=== PATIENT | female | born 1955 | race Caucasian/White ===

== ENCOUNTER 2024-08-18 15:05 | Inpatient (IN) | payer MEDICARE, OTHER ==
[~2024-08-18] VITALS: Ht 170.2 cm; Wt 49.6 kg
--- NOTE | 2024-08-18 16:16 | ED.PDOC ---
History of Present Illness HPI Comments This patient is a pleasant 69-year-old female who arrives to the ED today with her due to complaints of right hip and leg pain concerns status post ground level fall yesterday. Patient states she had a mechanical trip and fall yesterday and landed on her right hip. Patient states it subsequent to the event, she has been unable to bear weight. Patient arrives with a slight inward rotation of the foot and elevation of the right hip region. Patient denies any head trauma or LOC. 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 Family History Family History: Reviewed,noncontributory to illness, Unknown Social History Smoker: Non-Smoker Alcohol: Denies ETOH Use Drugs: Denies Drug Use Lives In: Home Constitutional: denies: chills, diaphoresis, fatigue, fever, malaise, sweats, weakness, others EENTM: denies: blurred vision, double vision, ear bleeding, ear discharge, ear drainage, ear pain, ear ringing, eye pain, eye redness, hearing loss, mouth pain, mouth swelling, nasal discharge, nose bleeding, nose congestion, nose pain, photophobia, tearing, throat pain, throat swelling, voice changes, others Respiratory: denies: cough, hemoptysis, orthopnea, SOB at rest, shortness of breath, SOB with excertion, stridor, wheezing, others Cardiovascular: denies: chest pain, dizzy spells, diaphoresis, Dyspnea on exertion, edema, irregular heart beat, left arm pain, lightheadedness, palpitations, PND, syncope, others Gastrointestinal: denies: abdomen distended, abdominal pain, blood streaked bowels, constipated, diarrhea, dysphagia, difficulty swallowing, hematemesis, melena, nausea, poor appetite, poor fluid intake, rectal bleeding, rectal pain, vomiting, others Genitourinary: denies: abnormal vagina bleeding, burning, dyspareunia, dysuria, flank pain, frequency, hematuria, incontinence, pain, , vagina discharge, urgency, others Neurological: denies: dizziness, fainting, headache, left sided numbness, left sided weakness, numbness, paresthesia, pre-existing deficit, right sided numbness, right sided weakness, seizure, speech problems, tingling, tremors, weakness, others Musculoskeletal: reports: others (Right hip and thigh pain); denies: back pain, gout, joint pain, joint swelling, muscle pain, muscle stiffness, neck pain Integumetry: denies: bruises, change in color, change in hair/nails, dryness, laceration, lesions, lumps, rash, wounds, others Allergic/Immunocompromised: denies: Difficulty Healing, Frequent Infections, Hives, Itching, others Hematologic/Lymphatic: denies: anemia, blood clots, easy bleeding, easy bruising, swollen glands, others Endocrine: denies: excessive hunger, excessive sweating, excessive thirst, excessive urination, flushing, intolerance to cold, intolerance to heat, unexplained weight gain, unexplained weight loss, others Psychiatric: denies: anxiety, bipolar disorder, depression, hopeless, panic disorder, schizophrenia, sleepless, suicidal, others All Other Systems: Reviewed and Negative Physical Exam General Appearance: Mild Distress ( patient only had mild distress at time of evaluation. Patient states the pain is manageable as long as she does not m ove.), Normal HEENT: Normal ENT Inspection, Pharynx Normal, TMs Normal Neck: Full Range of Motion, Non-Tender, Normal, Normal Inspection Respiratory: Chest Non-Tender, Lungs Clear, No Accessory Muscle Use, No Respiratory Distress, Normal Breath Sounds Cardiovascular: No Edema, No JVD, No Murmur, No Gallop, Normal Peripheral Pulses, Regular Rate/Rhythm Breast Exam: Deferred Gastrointestinal: No Organomegaly, Non Tender, No Pulsatile Mass, Normal Bowel Sounds, Soft Genitalia: Deferred Pelvic: Deferred Rectal: Deferred Extremities: Other ( Lateral aspect of the right hip is diffusely tender to palpation with some hip elevation noted. Patient is unable to stand or bear weight. Distal neurovascularly intact.) Musculoskeletal : Apperance: Normal Neurologic: Alert, Normal Affect, Normal Mood, No Sensory Deficits Cerebellar Function: NOT DONE Reflexes: NOT DONE Skin: Dry, Normal Color, Warm Lymphatic: No Adenopathy Was a procedure done? Was a procedure done?: No Differential Dx Considerations may include: Hip contusion, hip fracture, femoral fracture X-Ray, Labs, Meds, VS Vital Signs Date Time Temp Pulse Resp B/P (MAP) Pulse Ox O2 Delivery O2 Flow Rate FiO2 08/18/24 17:08 98.6 95 20 163/97 (119) 96 98.6 08/18/24 15:15 98.4 95 18 161/98 (119) 98 98.4 X-Ray, Labs, Meds, VS Comment All studies performed the ED were evaluated by me personally. Imaging studies confirmed a displaced subcapital fracture of the proximal right femur. Additional findings were notable for a 18-19 mm lytic process in the femoral n jessie raising the possibility of a pathologic fracture. Orthopedics is pending returned call this point in time. Patient will be admitted or transferred to a higher level of care. Time of 1ST Reevaluation: 18:11 Reevaluation 1ST: Unchanged Consultation: PCP, Surgery Patient Education/Counseling: Diagnosis, Treatment, Prognosis Family Education/Counseling: Diagnosis, Treatment, No Family Present Departure 1 Departure Time of Disposition: 18:11 Impression: Primary Impression: Subcapital fracture of right femur Disposition: ADMITTED INPATIENT Condition: Stable Discharged With: Self Critical Care Note Critical Care Time?: No Stability Stability form required: No Heart Score Heart Score: Heart Score Response (Comments) Value History N/A 0 EKG N/A 0 Age N/A 0 Risk Factors N/A 0 Troponin N/A 0 Total 0 I personally scribed for CELIA CLEMENTS PAC ([email or web address]) on 08/18/24 at 16:16. Electronically submitted by Enoc Tinsley ([email or web address]). CELIA CLEMENTS PAC August 18, 2024 16:16
--- NOTE | 2024-08-18 17:42 | DVH ---
INDICATION: Fall/trauma COMPARISON: None TECHNIQUE: CT of the right was performed without contrast. Volume transverse images were obtained and reconstructed in multiple planes using bone and soft tissue algorithms. CONTRAST: None Radiation Dose Information: CT Dose: CTDI volume is 25.19 mGy. Dose-length product is 1424.14 mGy*cm FINDINGS: The alignment is normal. The joint spaces are normal. Displaced subcapital fracture proximal right femur. There appears to be a 18- 19 mm lytic process in the femoral neck this may represent a pathologic fracture. The soft tissues are normal. IMPRESSION: 1. Displaced subcapital fracture proximal right femur. 2. There is an 18- 19 mm lytic process in the femoral neck raising the possibility of a pathologic fr acture. 3. All CT scans at this medical facility are performed using dose modulation techniques as appropriat e to a performed exam including the following: Automated exposure control was utilized; adjustment of the MA and/or KV according to patient size; and use of iterative reconstruction technique.
[2024-08-18] MEDS: HYDROcodone-ACET 10/325MG TAB PO ONE (21:31)
[2024-08-18] MEDS ORDERED: NITROGLYCERIN 0.4 MG SL TAB SL PRN (22:30)
--- NOTE | 2024-08-18 22:34 | DVHHP2 ---
History of Present Illness History of Present Illness Patient is 69 years old female with a past medical history of hypertension brought to the hospital due to fall and right leg pain. As per patient and her patient had a fall last night on the right side of her body, not hitting head. Following that he she has been having severe pain in the right side 01/13 at some point. Patient denied any chest pain or shortness of breath dizziness or vertigo or palpitation area or change in vision. Initial lab Workup revealed hyponatremia with sodium 125, hypokalemia with a potassium 3.4, HGB A1c 5.1, serum bilirubin 1.5. CT scan of the right lower extremity revealed- Displaced subcapital fracture proximal right femur. There is an 18- 19 mm lytic process in the femoral neck raising the possibility of a pathologic fracture. Past Medical History Hypertension Past Surgical History History of left hip surgery Past Social History Patient lives with the , denies smoking/alcoholism/drug abuse Home medication- amlodipine 2.5 mg p.o. daily, losartan 100 mg p.o. daily Review of Systems Review of Systems Allergy- NKDA Patient was seen today at the bedside. Cardiovascular- deny acute chest pain or shortness of breath or cough or palpitation Respiratory denies cough or short of breath or wheezing Gastrointestinal- denies any rectal bleeding, nausea or vomiting Neurological- denies acute dysarthria, dysphagia, change in vision Psychiatry- denies depression or SI or HI Skin- denies acute rash or purpura Allergies: Coded Allergies: NO KNOWN ALLERGIES (Unverified , 08/18/24) Medications Current Medications Medications Dose Ordered Sig/Deann Route Start Time Stop Time Status Last Admin Dose Admin Nitroglycerin 0.4 mg Q5MINP PRN SL 08/18/24 22:30 Morphine Sulfate 1 mg Q6HP PRN IV 08/18/24 22:30 Pantoprazole Sodium 40 mg DAILY IV 08/19/24 10:00 Heparin Sodium (Porcine) 5,000 units Q12HR SC 08/19/24 10:00 UNV Losartan Potassium 100 mg DAILY PO 08/19/24 10:00 Amlodipine Besylate 2.5 mg DAILY PO 08/19/24 10:00 Exam Vital Signs Vital Signs Date Time Temp Pulse Resp B/P (MAP) Pulse Ox O2 Delivery O2 Flow Rate FiO2 08/18/24 20:00 100.2 92 20 167/97 (120) 95 100.2 Exam General examination- , alert, oriented, conversant HEENT- PEERLA, no acute nasal discharge Cardiovascular- S1-S2 audible, rate and rhythm regular, no murmur Respiratory- CTAB, no wheeze or rhonchi Gastrointestinal-nontender, bowel sound+. Nondistended Musculoskeletal-no acute joint swelling or tenderness or redness Lower extremity- right lower extremity short and everted Neurological- cranial nerves intact, no acute dysarthria or dysphagia Psychiatry- denies depression or SI or HI Skin- no acute rash or purpura Assessment/Plan Assessment/Plan Assessment and plan Fall Right femur fracture Right lower extremity shortened and everted Moderate hyponatremia Mild hypokalemia Elevated bilirubin Hypertension hyponatremia with sodium 125, hypokalemia with a potassium 3.4, HGB A1c 5.1, serum bilirubin 1.5. CT scan of the right lower extremity revealed- Displaced subcapital fracture proximal right femur. There is an 18- 19 mm lytic process in the femoral neck raising the possibility of a pathologic fracture. Plan Ordered orthopedic consult for further evaluation And care Continue pain medication as prescribed Resume amlodipine and losartan for hypertension Ordered IV normal saline Potassium supplemented Goals of care, Code status ; discussed with >15 minutes PUD prophylaxis: Pantoprazole DVT prophylaxis: Heparin Plan discussed with Dr. Galeas , nursing staff, Total time spent on patient evaluation, chart review, assessment and plan, discussion discussion >35 minutes Plan discussed with: Patient, Spouse, Other (N) My Orders Orders - YI JIMÉNEZ RESIDENT Procedure Category Date Status Time Admit ADMIT 08/18/24 Transmitted 22:21 Nitroglycerin PHA 08/18/24 In Process Sublingual (Ntrostat 22:30 Notify Of Changes RIGO 08/18/24 In Process From Base 22:21 Countersinker Balance Screw Hole For RIGO 08/18/24 In Process 24 Hours 22:21 Morphine Sulfate PHA 08/18/24 In Process Injection 22:30 Pantoprazole PHA 08/19/24 In Process (Protonix) 10:00 Heparin Sodium PHA 08/19/24 Pending (Porcine) 10:00 Losartan Tablet PHA 08/19/24 In Process (Cozaar Tablet) 10:00 Amlodipine Tablet PHA 08/19/24 In Process (Norvasc Tablet) 10:00 *Cons[address] Humphries CONS 08/18/24 Transmitted Ibrahima 22:25 Date of Service: August 18, 2024 Billing Provider: NORMA GALEAS MD Common Visit Codes: [id number] INP/OBS CARE (HIGH) Secondary Visit Codes: [id number] CARE PLAN 30 MINUTES YI JIMÉNEZ RESIDENT August 18, 2024 22:34
[2024-08-18] MEDS: LOSARTAN POTASSIUM 50 MG TAB PO ONE (22:47)
[2024-08-18] MEDS: amLODIPine BESYLATE 5 MG TAB PO ONE (22:47)
[2024-08-18] MEDS: PANTOPRAZOLE 40 MG/10 ML VIAL INJ IV ONE (22:48)
[2024-08-18 23:49] LABS: Basophils # (auto) 0 10 ^3/uL (0-0.2); Basophils % (auto) 0.1 % (0.0-2.0); Eosinophils # (auto) 0 10 ^3/uL (0-0.8); Eosinophils % (auto) 0.1 % (0.0-7.0); Hematocrit 38.2 % (36.0-46.0); Hemoglobin 13.5 g/dL (12.2-16.2); Lymphocytes # (auto) 1.1 10 ^3/uL (0.4-5.4); Lymphocytes % (auto) 11.7 % (10.0-50.0); Mean Corpuscular Hemoglobin 31.4 pg (28.0-32.0); Mean Corpuscular Hgb Conc. 35.4 g/dL (32.0-36.0); Mean Corpuscular Volume 88.9 fL (80.0-100.0); Monocytes # (auto) 0.7 10 ^3/uL (0-1.3); Monocytes % (auto) 7.6 % (0.0-12.0); Neutrophils # (auto) 7.6 10 ^3/uL (1.6-8.6); Neutrophils % (auto) 80.5 % (37.0-80.0); Platelet Count (auto) 203 10^3/uL (140-450); Red Cell Distribution Width 12.6 % (11.8-14.3); White Blood Cell 9.4 10^3/uL (4.4-10.8)
[2024-08-19] VITALS (8 sets, daily range): BP systolic 90–144; BP diastolic 58–80; PULSE 66–90; RESP 16–19; TEMP 97.8–98.7; O2SAT 93–95
[2024-08-19 00:03] LABS: INR 1.09 (0.9-1.15); Prothrombin Time 11.5 sec (9.3-11.8)
[2024-08-19 00:04] LABS: Alanine Aminotransferase 12 U/L (7-40); Albumin 4.5 g/dL (3.2-4.8); Alkaline Phosphatase 83 U/L (46-116); Anion Gap 9 (5-15); Aspartate Aminotransferase 19 U/L (13-40); BUN/Creatinine Ratio 14.1 (10.0-20.0); Blood Urea Nitrogen 10 mg/dL (9-23); Calcium 9.2 mg/dL (8.7-10.4); Carbon Dioxide 23 mmol/L (20-31); Chloride 93 mmol/L (98-107); Glucose 131 mg/dL (74-106); Potassium 3.4 mmol/L (3.5-5.1); Sodium 125 mmol/L (136-145); Total Protein 7.4 g/dL (5.7-8.2)
--- NOTE | 2024-08-19 00:15 | DVH ---
CHEST RADIOGRAPH Indication: PNA Technique: Single frontal view of the chest was obtained COMPARISON: None FINDINGS: Lines and Tubes: None Lungs: Mild diffuse increased prominence of the pulmonary vasculature and interstitium. No evidence o f focal consolidation. Pleura: No effusion. No pneumothorax. Cardiomediastinal contours: Unremarkable Bones: Unremarkable IMPRESSION: 1. No acute disease. Mild diffuse increased prominence of the pulmonary vasculature and interstitium.
[2024-08-19 00:17] LABS: Bilirubin, Total 1.5 mg/dL (0.2-1.0)
[2024-08-19] MEDS: MORPHINE SULFATE INJ 2 MG/ml SYRG IV PRN (00:53)
[2024-08-19 01:10] LABS: Urine Bacteria None Seen /hpf (None Seen)
[2024-08-19] MEDS ORDERED: ACETAMINOPHEN 325 MG TAB PO PRN (01:15)
[2024-08-19] MEDS: POTASSIUM CHL 20 Meq TABLET PO ONE (01:26)
[2024-08-19] MEDS: SODIUM CHLORIDE 0.9% 1,000 ML IV SCH (01:26)
[2024-08-19 01:34] LABS: Urine Blood 2+ /uL (Negative); Urine Clarity Clear (Clear); Urine Color Light-Yellow (Yellow); Urine Mucus FEW (None Seen); Urine Protein, UAD Negative (Negative); Urine Specific Gravity 1.015 (1.001-1.035); Urine Squamous Epithelial Cell FEW /hpf (<5); Urine Urobilinogen Normal (Negative); Urine WBC 2 /HPF (0-5); Urine pH 6.5 (5.0-9.0)
[2024-08-19 01:37] LABS: Barbiturate Scree,Urine Neg (NEGATIVE); Opiate Scree,Urine Neg (NEGATIVE)
[2024-08-19 01:38] LABS: Amphetamine Screen, Urine Neg (NEGATIVE); Benzodiazephine Screen, Urine Neg (NEGATIVE); Cannabinoid Screen, Urine Neg (NEGATIVE); Cocaine Screen, Urine Neg (NEGATIVE); Phencyclidine Screen, Urine Neg (NEGATIVE)
[2024-08-19] MEDS ORDERED: ACET-1341 OR (04:46)
[2024-08-19] MEDS ORDERED: CHOL20007 PO (04:46)
[2024-08-19] MEDS ORDERED: LOSA-535 PO (04:46)
[2024-08-19] MEDS ORDERED: AML5T PO (04:48)
[2024-08-19 06:38] LABS: Alanine Aminotransferase 10 U/L (7-40); Alkaline Phosphatase 70 U/L (46-116); Anion Gap 10 (5-15); Aspartate Aminotransferase 17 U/L (13-40); BUN/Creatinine Ratio 14.7 (10.0-20.0); Blood Urea Nitrogen 11 mg/dL (9-23); Calcium 8.8 mg/dL (8.7-10.4); Carbon Dioxide 23 mmol/L (20-31); Magnesium 1.8 mg/dL (1.6-2.6); Potassium 3.7 mmol/L (3.5-5.1); Total Protein 6.6 g/dL (5.7-8.2)
[2024-08-19 06:50] LABS: Bilirubin, Total 1.3 mg/dL (0.2-1.0); Chloride 93 mmol/L (98-107); Glucose 112 mg/dL (74-106); Sodium 126 mmol/L (136-145)
--- NOTE | 2024-08-19 07:35 | DVHINCON2 ---
Date of service: August 19, 2024 Reason for Consultation Right hip pain History of Present Illness Mrs. Diane is a 69-year-old female who was brought to the hospital due to a mechanical fall approximately two days ago. Patient has slipped and fell onto her right side of her body and has been experiencing pain in the inability to bear weight on her right hip since the fall. She denied any head trauma, loss of consciousness, chest pain, shortness of breath, nausea, vomiting, fever, or chills. Past Medical History Hypertension Past Surgical History Left hip surgery Family History: Patient reports no known family medical history. Family History Noncontributory Social History Patient denies smoking, EtOH, or illicit substance use Allergies: Coded Allergies: NO KNOWN ALLERGIES (Unverified , 08/18/24) Home Meds Reported Medications Amlodipine Besylate (NORVASC TABLET) 5 Mg Tb, 1 TAB PO DAILY, #30 TAB 5 Refills 08/19/24 Acetaminophen (EQ ACETAMINOPHEN EXTRA ST) 500 Mg Tab, 500 MG OR, TAB 08/19/24 Cholecalciferol (VITAMIN D3) 2,000 Unit Tab, 1 TAB PO DAILY, #30 TAB 5 Refills 08/19/24 Losartan Potassium (Losartan Potassium) 100 Mg Tab, 1 TAB PO DAILY, #30 TAB 5 Refills 08/19/24 Current Medications Current Medications Medications (Trade) Dose Ordered Sig/Deann Route PRN Reason Start Time Stop Time Status Last Admin Nitroglycerin (Ntrostat Sublingual) 0.4 mg Q5MINP PRN SL FOR CHEST PAIN 08/18/24 22:30 08/19/24 01:08 DC Morphine Sulfate 1 mg Q6HP PRN IV SEVERE PAIN (7-10 PAIN SCALE) 08/18/24 22:30 08/19/24 00:53 Pantoprazole Sodium (Protonix) 40 mg DAILY IV 08/19/24 10:00 Heparin Sodium (Porcine) 5,000 units Q12HR SC 08/19/24 10:00 Losartan Potassium (Cozaar Tablet) 100 mg DAILY PO 08/19/24 10:00 Amlodipine Besylate (Norvasc Tablet) 2.5 mg DAILY PO 08/19/24 10:00 Sodium Chloride 1,000 ml @ 125 mls/hr Q8H IV 08/19/24 01:15 08/19/24 01:26 Acetaminophen (Tylenol Tablet) 650 mg Q6HP PRN PO MODERATE PAIN (4-6 PAIN SCALE) 08/19/24 01:15 Review of Systems 10 point review of systems negative except as per HPI Vital Signs Vital Signs Date Time Temp Pulse Resp B/P (MAP) Pulse Ox O2 Delivery O2 Flow Rate FiO2 08/19/24 04:58 98.0 66 16 105/63 (77) 93 98.0 08/19/24 03:59 Room Air* 0 21 Physical Exam General appearance: A&O x4 in no acute distress HEENT: Normal ENT inspection, pharynx normal, TMs normal Neck: Full range of motion, nontender, normal inspection Respiratory: Chest nontender, without accessory muscle use, no respiratory distress Cardiovascular: No edema, no JVD, normal peripheral pulses Gastrointestinal: Soft, nontender, no organomegaly. Musculoskeletal: Right hip range of motion grossly limited with pain on slight movement, no calf tenderness, normal capillary refill, no pedal edema, ne urovascularly intact. Skin: Dry, normal color, warm Lymphatic: No adenopathy Labs/Diagnostic Data Labs Test 08/19/24 05:25 08/19/24 01:05 08/18/24 23:20 Range/Units Sodium Level 126 L 136-145 mmol/L Potassium Level 3.7 3.5-5.1 mmol/L Chloride Level 93 L 98-107 mmol/L Carbon Dioxide Level 23 20-31 mmol/L Anion Gap 10 5-15 Blood Urea Nitrogen 11 9-23 mg/dL Creatinine 0.75 0.550-1.02 mg/dL Glomerular Filtration Rate Calc 87 >90 mL/min BUN/Creatinine Ratio 14.7 10.0-20.0 Serum Glucose 112 H 74-106 mg/dL Calcium Level 8.8 8.7-10.4 mg/dL Magnesium Level 1.8 1.6-2.6 mg/dL Total Bilirubin 1.3 H 0.2-1.0 mg/dL Aspartate Amino Transferase (AST) 17 13-40 U/L Alanine Aminotransferase (ALT) 10 7-40 U/L Alkaline Phosphatase 70 46-116 U/L Total Protein 6.6 5.7-8.2 g/dL Albumin 4.0 3.2-4.8 g/dL Urine Color Light-yellow Yellow Urine Clarity Clear Clear Urine pH 6.5 5.0-9.0 Urine Specific [place] 1.015 1.001-1.035 Urine Protein Negative Negative Urine Ketones 1+ H Negative Urine Blood 2+ H Negative /uL Urine Nitrite Negative Negative Urine Bilirubin Negative Negative Urine Urobilinogen Normal Negative mg/dL Urine Leukocyte Esterase Negative Negative /uL Urine RBC 11 0 - 4 /hpf Urine Microscopic WBC 2 0-5 /HPF Urine Squamous Epithelial Cells Few <5 /hpf Urine Bacteria None seen None Seen /hpf Urine Mucus Few None Seen Urine Glucose Normal Normal mg/dL Urine Opiates Screen Neg NEGATIVE Urine Fentanyl Screen Neg NEGATIVE Urine Barbiturates Screen Neg NEGATIVE Urine Phencyclidine Screen Neg NEGATIVE Urine Amphetamines Screen Neg NEGATIVE Urine Benzodiazepines Screen Neg NEGATIVE Urine Cocaine Screen Neg NEGATIVE Urine Cannabinoids Screen Neg NEGATIVE White Blood Count 9.4 4.4-10.8 10^3/uL Red Blood Count 4.30 4.0-5.20 10^6/uL Hemoglobin 13.5 12.2-16.2 g/dL Hematocrit 38.2 36.0-46.0 % Mean Corpuscular Volume 88.9 80.0-100.0 fL Mean Corpuscular Hemoglobin 31.4 28.0-32.0 pg Mean Corpuscular Hemoglobin Concent 35.4 32.0-36.0 g/dL Red Cell Distribution Width 12.6 11.8-14.3 % Platelet Count 203 140-450 10^3/uL Mean Platelet Volume 7.2 6.9-10.8 fL Neutrophils (%) (Auto) 80.5 H 37.0-80.0 % Lymphocytes (%) (Auto) 11.7 10.0-50.0 % Monocytes (%) (Auto) 7.6 0.0-12.0 % Eosinophils (%) (Auto) 0.1 0.0-7.0 % Basophils (%) (Auto) 0.1 0.0-2.0 % Neutrophils # (Auto) 7.6 1.6-8.6 10 ^3/uL Lymphocytes # (Auto) 1.1 0.4-5.4 10 ^3/uL Monocytes # (Auto) 0.7 0-1.3 10 ^3/uL Eosinophils # (Auto) 0 0-0.8 10 ^3/uL Basophils # (Auto) 0 0-0.2 10 ^3/uL Nucleated Red Blood Cells 0.0 % Prothrombin Time 11.5 9.3-11.8 sec Prothrombin Time INR 1.09 0.9-1.15 Hemoglobin A1c 5.1 <5.7 % A1C Thyroid Stimulating Hormone (TSH) 1.52 0.55-4.78 uIU/mL Plasma/Serum Blood Alcohol < 3.0 <10 mg/dL Right hip CT scan reviewed and demonstrated: Displaced subcapital fracture proximal right femur. There is an 18- 19 mm lytic process in the femoral neck raising the possibility of a pathologic fracture. Assessment Right hip fracture Plan/Recommendation I had a lengthy discussion with the patient and after discussing her case and re viewing her imaging studies with Dr. Alejandro we have recommended an MRI of her right hip for further evaluation given the suspicious lytic lesion seen on the CT scan. We will reconvene with the patient once the MRI has been completed to discuss results and determine the course of action. She understood and agreed. Thank you for allowing us to participate in the care of your patient. Plan discussed with: Patient MILLERREMBERTO August 19, 2024 07:35
[2024-08-19] MEDS: PANTOPRAZOLE 40 MG/10 ML VIAL INJ IV SCH (10:46)
[2024-08-19] MEDS: LOSARTAN POTASSIUM 50 MG TAB PO SCH (10:46)
[2024-08-19] MEDS: amLODIPine BESYLATE 5 MG TAB PO SCH (10:47)
[2024-08-19] MEDS: HEPARIN SODIUM (PORCINE) 5000 UNITS/ML 1ML VIAL SC SCH (11:03)
--- NOTE | 2024-08-19 13:19 | DVHPN2 ---
Reviewed: Care Plan, H&P, Labs, Medications, Previous Orders, Radiology Changes from previous H/P or p: No Changes Objective Vitals Vital Signs Date Time Temp Pulse Resp B/P (MAP) Pulse Ox O2 Delivery O2 Flow Rate FiO2 08/19/24 10:47 126/76 08/19/24 09:00 98.0 79 18 93 98.0 08/19/24 03:59 Room Air* 0 21 Intake/Output Intake and Output 08/19/24 07:00 Intake Total 100 ml Balance 100 ml Intake Oral 100 ml Medications Current Medications Medications Dose Ordered Sig/Deann Route Start Time Stop Time Status Last Admin Dose Admin Morphine Sulfate 1 mg Q6HP PRN IV 08/18/24 22:30 08/19/24 00:53 1 MG Pantoprazole Sodium 40 mg DAILY IV 08/19/24 10:00 08/19/24 10:46 40 MG Heparin Sodium (Porcine) 5,000 units Q12HR SC 08/19/24 10:00 08/19/24 11:03 5,000 UNITS Losartan Potassium 100 mg DAILY PO 08/19/24 10:00 08/19/24 10:46 100 MG Amlodipine Besylate 2.5 mg DAILY PO 08/19/24 10:00 08/19/24 10:47 2.5 MG Sodium Chloride 1,000 ml @ 125 mls/hr Q8H IV 08/19/24 01:15 08/19/24 09:15 125 MLS/HR Acetaminophen 650 mg Q6HP PRN PO 08/19/24 01:15 Laboratory Results Laboratory Tests 08/18/24 23:20 08/19/24 05:25 Chemistry Test 08/18/24 23:20 08/19/24 05:25 Albumin 4.5 g/dL (3.2-4.8) 4.0 g/dL (3.2-4.8) Calcium Level 9.2 mg/dL (8.7-10.4) 8.8 mg/dL (8.7-10.4) Total Protein 7.4 g/dL (5.7-8.2) 6.6 g/dL (5.7-8.2) Magnesium Level 1.8 mg/dL (1.6-2.6) Coagulation Test 08/18/24 23:20 Prothrombin Time 11.5 sec (9.3-11.8) Prothrombin Time INR 1.09 (0.9-1.15) LFT Test 08/18/24 23:20 08/19/24 05:25 Alanine Aminotransferase (ALT) 12 U/L (7-40) 10 U/L (7-40) Alkaline Phosphatase 83 U/L (46-116) 70 U/L (46-116) Aspartate Amino Transferase (AST) 19 U/L (13-40) 17 U/L (13-40) Total Bilirubin 1.5 mg/dL (0.2-1.0) H 1.3 mg/dL (0.2-1.0) H HgA1c, TSH Test 08/18/24 23:20 Hemoglobin A1c 5.1 % A1C (<5.7) Thyroid Stimulating Hormone (TSH) 1.52 uIU/mL (0.55-4.78) Urinalysis Test 08/19/24 01:05 Urine Color Light-yellow (Yellow) Urine Clarity Clear (Clear) Urine pH 6.5 (5.0-9.0) Urine Specific [place] 1.015 (1.001-1.035) Urine Protein Negative (Negative) Urine Ketones 1+ (Negative) H Urine Blood 2+ /uL (Negative) H Urine Nitrite Negative (Negative) Urine Bilirubin Negative (Negative) Urine Urobilinogen Normal mg/dL (Negative) Urine Leukocyte Esterase Negative /uL (Negative) Urine RBC 11 /hpf (0 - 4) Urine Microscopic WBC 2 /HPF (0-5) Urine Squamous Epithelial Cells Few /hpf (<5) Urine Bacteria None seen /hpf (None Seen) Urine Mucus Few (None Seen) Urine Glucose Normal mg/dL (Normal) Labs and/or images reviewed: Labs reviewed by me, Image(s) reviewed by me Assessment/Plan Assessment/Plan Fall Right femur fracture: Ortho consult appreciated ordered MRI Right lower extremity shortened and everted Moderate hyponatremia Mild hypokalemia Elevated bilirubin Hypertension Plan discussed with: Patient Date of Service: August 19, 2024 Billing Provider: LADONNA STEARNS MD Common Visit Codes: [id number] INP/OBS CARE(HIGH) Secondary Visit Codes: [id number] CARE PLAN 30 MINUTES LADONNA STEARNS MD August 19, 2024 13:19
--- NOTE | 2024-08-19 14:03 | DVH ---
CLINICAL INDICATION: FRACTURE COMPARISON: CT scan of the right femur performed on 08/19/2024. TECHNIQUE: Multiplanar, multi-sequence MRI of the right hip was performed without intravenous contrast. Contralateral hip is included on several of the sequences. Contrast: None INTERPRETATION: Joint space: There is right hip joint effusion, likely posttraumatic. Bones and articular cartilage: There is an acute right subcapital femoral neck fracture. Right femor al head remains aligned with the acetabulum. There is mild right hip joint space narrowing. There is a 2.9 by 2.8 cm T1 hypointense, T2 hyperintense in the anterior aspect of the basicervical region of the right femoral neck. Contralateral hip shows a left hip replacement. Tendons, muscles and bursae: There is no tendon abnormality. Mild edema in the right adductor muscle s. No muscle atrophy in the right hip. Mild fatty infiltration of the abductor muscles in the left h ip likely related to the prior hip replacement. There is no evidence of bursitis. Acetabular labrum: Degeneration of the entire glenoid labrum. Other: Lower lumbar spondylosis. IMPRESSION: 1. Acute pathologic subcapital right femoral neck fracture. 2.9 cm lesion in the proximal femur at th e site of the fracture which may represent metastatic disease, although other etiologies such as mult iple myeloma or primary malignancy are not excluded. 2. Mild edema in the right adductor muscles which may reflect strain. HS:Y
[2024-08-20] VITALS (8 sets, daily range): BP systolic 110–148; BP diastolic 70–86; PULSE 78–98; RESP 16–19; TEMP 98–98.7; O2SAT 93–98
--- NOTE | 2024-08-20 09:30 | DVHPN2 ---
Progress Note - Dictate Date Seen: August 20, 2024 Medical Necessity Reason Pt with a Central, PICC or Fol: No Subjective Patient was lying comfortably in bed during my evaluation and denied any changes since my last evaluation with her. Patient continues to experience right hip pain with movement and has been unable to bear weight on that side since her incident. Patient was otherwise feeling well denying any other complaints or concerns during my evaluation. vital signs Vital Sign Date Time Temp Pulse Resp B/P (MAP) Pulse Ox O2 Delivery O2 Flow Rate FiO2 08/20/24 09:03 127/76 08/20/24 08:51 98.4 89 19 98 98.4 08/20/24 08:00 Room Air* 0 21 Total Intake and Output 08/19/24 08/19/24 08/20/24 15:00 23:00 07:00 Intake Total 500 ml 1550 ml Output Total 520 ml Balance -20 ml 1550 ml medications Current Medications Medications Dose Ordered Sig/Deann Route Start Time Stop Time Status Last Admin Dose Admin Morphine Sulfate 1 mg Q6HP PRN IV 08/18/24 22:30 08/19/24 00:53 1 MG Pantoprazole Sodium 40 mg DAILY IV 08/19/24 10:00 08/20/24 09:01 40 MG Heparin Sodium (Porcine) 5,000 units Q12HR SC 08/19/24 10:00 08/20/24 09:17 5,000 UNITS Losartan Potassium 100 mg DAILY PO 08/19/24 10:00 08/20/24 09:03 100 MG Amlodipine Besylate 2.5 mg DAILY PO 08/19/24 10:00 08/20/24 09:02 2.5 MG Sodium Chloride 1,000 ml @ 125 mls/hr Q8H IV 08/19/24 01:15 08/20/24 09:04 125 MLS/HR Acetaminophen 650 mg Q6HP PRN PO 08/19/24 01:15 objective General appearance: A&O x4 in no acute distress HEENT: Normal ENT inspection, pharynx normal, TMs normal Neck: Full range of motion, nontender, normal inspection Respiratory: Chest nontender, without accessory muscle use, no respiratory distress Cardiovascular: No edema, no JVD, normal peripheral pulses Gastrointestinal: Soft, nontender, no organomegaly. Musculoskeletal: Right hip range of motion grossly limited with pain on slight movement, no calf tenderness, normal capillary refill, no pedal edema, neurovascularly intact. Skin: Dry, normal color, warm Lymphatic: No adenopathy Right hip MRI reviewed and demonstrated: Acute pathologic subcapital right femoral neck fracture. 2.9 cm lesion in the proximal femur at the site of the fracture which may represent metastatic disease, although other etiologies such as multiple myeloma or primary malignancy are not excluded. Mild edema in the right adductor muscles which may reflect strain. laboratory and microbiology Laboratory Tests 08/19/24 05:25 08/18/24 23:20 Test 08/19/24 05:25 Range/Units Serum Glucose 112 H 74-106 mg/dL Assessment/Plan Right hip fracture I had a lengthy discussion with the patient and her regarding nonoperative versus operative management and after discussing her case and reviewing her imaging studies with Dr. Alejandro we have recommended a katiuska hip replacement of her right subcapital femoral neck fracture given her fracture pattern and poor prognosis. I discussed all of the risks and complications involved with surgery including but not limited to bleeding, infection, nerve injury, chronic pain, nonunion, malunion, need for further surgery, blood clots, DVT, PE, cardiac and pulmonary complications, and even . They understood and agreed to proceed with the surgery. We will plan to undergo surgery Thursday morning with Dr. Alexandra if schedule allows and patient remains medically stable. Thank you for allowing us to participate in the care of your patient. Plan discussed with: Patient, Spouse REMBERTO MILLER August 20, 2024 09:30
--- NOTE | 2024-08-20 10:02 | DVHPN2 ---
Reviewed: Care Plan, H&P, Labs, Medications, Previous Orders, Radiology Changes from previous H/P or p: No Changes Objective Vitals Vital Signs Date Time Temp Pulse Resp B/P (MAP) Pulse Ox O2 Delivery O2 Flow Rate FiO2 08/20/24 09:03 127/76 08/20/24 08:51 98.4 89 19 98 98.4 08/20/24 08:00 Room Air* 0 21 Intake/Output Intake and Output 08/20/24 07:00 Intake Total 2050 ml Output Total 520 ml Balance 1530 ml Intake Oral 1150 ml IV Total 900 ml Output Urine Total 520 ml # Voids 6 Medications Current Medications Medications Dose Ordered Sig/Deann Route Start Time Stop Time Status Last Admin Dose Admin Morphine Sulfate 1 mg Q6HP PRN IV 08/18/24 22:30 08/19/24 00:53 1 MG Pantoprazole Sodium 40 mg DAILY IV 08/19/24 10:00 08/20/24 09:01 40 MG Heparin Sodium (Porcine) 5,000 units Q12HR SC 08/19/24 10:00 08/20/24 09:17 5,000 UNITS Losartan Potassium 100 mg DAILY PO 08/19/24 10:00 08/20/24 09:03 100 MG Amlodipine Besylate 2.5 mg DAILY PO 08/19/24 10:00 08/20/24 09:02 2.5 MG Sodium Chloride 1,000 ml @ 125 mls/hr Q8H IV 08/19/24 01:15 08/20/24 09:04 125 MLS/HR Acetaminophen 650 mg Q6HP PRN PO 08/19/24 01:15 Laboratory Results Laboratory Tests 08/18/24 23:20 08/19/24 05:25 Urinalysis Test 08/19/24 01:05 Urine Color Light-yellow (Yellow) Urine Clarity Clear (Clear) Urine pH 6.5 (5.0-9.0) Urine Specific [place] 1.015 (1.001-1.035) Urine Protein Negative (Negative) Urine Ketones 1+ (Negative) H Urine Blood 2+ /uL (Negative) H Urine Nitrite Negative (Negative) Urine Bilirubin Negative (Negative) Urine Urobilinogen Normal mg/dL (Negative) Urine Leukocyte Esterase Negative /uL (Negative) Urine RBC 11 /hpf (0 - 4) Urine Microscopic WBC 2 /HPF (0-5) Urine Squamous Epithelial Cells Few /hpf (<5) Urine Bacteria None seen /hpf (None Seen) Urine Mucus Few (None Seen) Urine Glucose Normal mg/dL (Normal) Labs and/or images reviewed: Labs reviewed by me, Image(s) reviewed by me Assessment/Plan Assessment/Plan Right femur fracture: Ortho consult appreciated , planning for surgery on Thursday Mechanical fall at [place] Moderate hyponatremia Mild hypokalemia Elevated bilirubin Hypertension Edward [phone] at bed side Plan discussed with: Patient My Orders Orders - LADONNA STEARNS MD Procedure Category Date Status Time Cardiac DIET 08/19/24 Transmitted Diet-2gna,Lofat,Lochol Lunch Date of Service: August 20, 2024 Billing Provider: LADONNA STEARNS MD Common Visit Codes: [id number] INP/OBS CARE(HIGH) LADONNA STEARNS MD August 20, 2024 10:02
[2024-08-20] MEDS: DOCUSATE SOD 100 MG CAP PO PRN (16:15)
--- NOTE | 2024-08-20 19:45 | DVHSR ---
APPROVED REPORT EXAM: Two-dimensional and M-mode echocardiogram with Doppler and color Doppler. Blood Pressure: 127/76 mmHg INDICATION Pre-Op RISK FACTORS Height: 5'7", Weight: 115 DIMENSIONS LVDd3.1 (3.8-5.7cm)LA (2D)3.4 (1.9-4.0cm)Aortic Root3.5 (2.0-3.7cm) LVDs2.3 (2.5-4.0cm)LA (MM) (1.9-4.0cm)Aortic Cusp Exc1.5 (1.5-2.0cm) EF (%) 60.0 (55-70%)Rt. Atrium3.7 (1.9-4.0cm)Asc. Aorta cm IVSd0.8 (0.7-1.1cm)RV (D) (1.8-2.4cm) PWd1.0 (0.7-1.1cm) Mitral Valve MitralMitral Stenosis E wave0.64m/sMV Mean GR.mmHg A wave0.62m/sMV Peak GR.mmHg E/A ratio1.02D MVAcm2 DECEL [id number] 1/2 Timems Aortic Valve Aortic ValveAortic Stenosis V11.22m/Angelica Mean GR.3mmHg V21.16m/Angelica Peak GR.5mmHg LVOT Diameter1.7 (1.8-2.4cm)Doppler AVA2.39cm2 Pulmonic Valve V20.85m/s Tricuspid Valve TR Velocity2.69m/s [id number] Other Information Technically limited study due to patient position. Conclusion Technically a good study, Sinus rhythm . Ao enlargement. Valves are normal. EF of 65% with normal RV function. Doppler is unremarkable, mild TR No masses or vegetations.
[2024-08-21] VITALS (8 sets, daily range): BP systolic 118–159; BP diastolic 80–95; PULSE 71–111; RESP 16–20; TEMP 97.9–98.6; O2SAT 95–98
[2024-08-21 06:27] LABS: Partial Thromboplastin Time 33.6 SEC (24.5-34.5); Prothrombin Time 10.6 sec (9.3-11.8)
--- NOTE | 2024-08-21 07:42 | DVHPN2 ---
Progress Note - Dictate Date Seen: August 21, 2024 Medical Necessity Reason Pt with a Central, PICC or Fol: No vital signs Vital Sign Date Time Temp Pulse Resp B/P (MAP) Pulse Ox O2 Delivery O2 Flow Rate FiO2 08/21/24 07:30 Room Air* 0 21 08/21/24 05:00 98.1 93 16 159/90 (113) 98 98.1 Total Intake and Output 08/20/24 08/20/24 08/21/24 15:00 23:00 07:00 Intake Total 100 ml 1100 ml 1050 ml Output Total 600 ml Balance 100 ml 500 ml 1050 ml medications Current Medications Medications Dose Ordered Sig/Deann Route Start Time Stop Time Status Last Admin Dose Admin Morphine Sulfate 1 mg Q6HP PRN IV 08/18/24 22:30 08/19/24 00:53 1 MG Pantoprazole Sodium 40 mg DAILY IV 08/19/24 10:00 08/20/24 09:01 40 MG Heparin Sodium (Porcine) 5,000 units Q12HR SC 08/19/24 10:00 08/20/24 21:05 5,000 UNITS Losartan Potassium 100 mg DAILY PO 08/19/24 10:00 08/20/24 09:03 100 MG Amlodipine Besylate 2.5 mg DAILY PO 08/19/24 10:00 08/20/24 09:02 2.5 MG Sodium Chloride 1,000 ml @ 125 mls/hr Q8H IV 08/19/24 01:15 08/21/24 05:00 125 MLS/HR Acetaminophen 650 mg Q6HP PRN PO 08/19/24 01:15 Docusate Sodium 100 mg BIDPRN PRN PO 08/20/24 16:00 08/20/24 16:15 100 MG objective General Appearance: alert, no distress HEENT: EOMI, PERRLA, normal external inspect of ears, no icterus, no nasal drainage Neck: no carotid bruit, no jugular venous distention (JVD), no lymphadenopathy Chest: normal thorax Respiratory: clear to auscultation, normal air movement Cardiovascular: regular rate and rhythm, no diastolic murmur, no jugular venous distention (JVD), no rub, no systolic murmur Abdominal: soft, no hepatomegaly, no mass, no splenomegaly, no tenderness Musculoskeletal: no joint tenderness, no swelling Extremities: normal pulses, no calf tenderness, no clubbing, no cyanosis, no edema Skin: no bruising, no jaundice, no rash Neurological: alert, No focal deficit laboratory and microbiology Laboratory Tests 08/19/24 05:25 08/18/24 23:20 Test 08/19/24 05:25 Range/Units Serum Glucose 112 H 74-106 mg/dL Problem List - Displaced right femur subcapital fracture Orthopedic consult, plan for ORIF on Thursday with Dr. Alexandra - Mechanical fall Monitoring -Moderate hyponatremia-improving Replace electrolytes, monitoring - Mild hypokalemia-resolved -Hyperalbuminemia Daily labs Assessment/Plan hag subjective Patient is awake and alert. Objective She states she had a fall while vacationing with her . She sustained a right hip fracture. Patient was seen by orthopedic surgeon they are planning for ORIF of her right hip in AM. I discussed plan of care with Dr. Kumar. He is planning on visiting patient in AM. Plan Orthopedic surgeon recommendations appreciated. Continue current plan. Dietary Evaluation Review Recommendations by RD: Dietary education by RD, Protein Supplementation Comments: 1) Initiate Ensure Enlive tid. Liberalize diet to 2g Na. Encourage optimal PO intake 2) Refer to outpatient RD for weight management 3) Follow-up with orthopedic surgeon and physical therapy 4) Continue to monitor I&O, labs, and skin integrity Expected Outcomes/Goals: 1) appetite and labs to improve 2) gradual wt gain 3) f/u in 3-5 days Plan discussed with: Patient, Other ELIDIALAVINIASHELDON Bell NP August 21, 2024 07:42
[2024-08-21] MEDS: SODIUM CHLORIDE 0.9% 1,000 ML IV SCH (10:17)
--- NOTE | 2024-08-21 13:37 | DVH ---
Indication: rule out tumor Technique: CT axial images of the chest, abdomen and pelvis are obtained with intravenous contrast. Coronal and sagittal reformats were obtained. Radiation Dose Information: CTDI volume is 6.17 mGy. Dose-length product is 428.73 mGy*cm Comparison: None FINDINGS: Trachea patent. No pneumothorax. No pleural effusion. Left upper lobe lingular segment, right middle lobe tree-in-bud nodularity. Right upper lobe tree-in-bud nodularity. Heart normal in size. Pretracheal lymph node measuring 10 mm. Subcarinal lymph node measuring 10 mm. No supraclavicular or axillary lymphadenopathy. Adrenal glands, spleen, pancreas unremarkable. No enhancing hepatic lesion. No CT evidence for winter lithiasis. Kidneys demonstrate no hydronephrosis. Stomach is partially distended. Small bowel loops are normal in caliber. Moderate volume stool in th e colon. Normal appendix. Abdominal aortic atherosclerotic disease bladder distended. No free pelvic fluid. No inguinal lymphad enopathy. Redemonstration of right femoral neck subcapital fracture with angulation deformity and possible unde rlying lytic lesion. Left total hip arthroplasty. Moderate thoracolumbar degenerative disc disease. IMPRESSION: 1. Right femoral neck subcapital fracture with angulation deformity and possible underlying lytic les ion as previously described. 2. Bilateral pulmonary tree-in-bud nodularity which can be secondary to atypical infection, bronchiol itis /postinflammatory etiologies, miliary spread carcinoma. 3. Other findings as described.
--- NOTE | 2024-08-21 14:29 | DVH ---
CLINICAL INDICATION: fracture TECHNIQUE: 2 radiographic views of the AP pelvis were obtained. Comparison: None FINDINGS/IMPRESSION: There is no evidence of acute fracture or dislocation. Total hip replacement noted on the left. Intertrochanteric fracture proximal right femur The visualized joint space is well maintained. The alignment is anatomical. There is no radiopaque foreign body.
[2024-08-22] VITALS (8 sets, daily range): BP systolic 122–170; BP diastolic 76–111; PULSE 80–120; RESP 15–18; TEMP 97.4–98.3; O2SAT 97–99
[2024-08-22 06:56] LABS: Albumin 4.6 g/dL (3.2-4.8); Alkaline Phosphatase 81 U/L (46-116); Anion Gap 10 (5-15); Aspartate Aminotransferase 18 U/L (13-40); BUN/Creatinine Ratio 13.6 (10.0-20.0); Basophils # (auto) 0 10 ^3/uL (0-0.2); Basophils % (auto) 0.3 % (0.0-2.0); Calcium 10.2 mg/dL (8.7-10.4); Carbon Dioxide 23 mmol/L (20-31); Chloride 98 mmol/L (98-107); Eosinophils # (auto) 0.1 10 ^3/uL (0-0.8); Eosinophils % (auto) 2.2 % (0.0-7.0); Glucose 100 mg/dL (74-106); Hematocrit 44.3 % (36.0-46.0); Hemoglobin 15.2 g/dL (12.2-16.2); Lymphocytes # (auto) 1.6 10 ^3/uL (0.4-5.4); Lymphocytes % (auto) 24.8 % (10.0-50.0); Mean Corpuscular Hemoglobin 31.1 pg (28.0-32.0); Mean Corpuscular Hgb Conc. 34.4 g/dL (32.0-36.0); Mean Corpuscular Volume 90.5 fL (80.0-100.0); Monocytes % (auto) 15.2 % (0.0-12.0); Neutrophils # (auto) 3.6 10 ^3/uL (1.6-8.6); Neutrophils % (auto) 57.5 % (37.0-80.0); Nucleated Red Blood Cells % 0.1 %; Platelet Count (auto) 212 10^3/uL (140-450); Red Blood Cells 4.89 10^6/uL (4.0-5.20); Red Cell Distribution Width 12.9 % (11.8-14.3); Total Protein 7.8 g/dL (5.7-8.2); White Blood Cell 6.3 10^3/uL (4.4-10.8)
[2024-08-22 07:05] LABS: Alanine Aminotransferase < 9 U/L (7-40); Blood Urea Nitrogen 9 mg/dL (9-23); Potassium 3.5 mmol/L (3.5-5.1); Sodium 131 mmol/L (136-145)
[2024-08-22 08:20] LABS: Bilirubin, Total 0.7 mg/dL (0.2-1.0)
--- NOTE | 2024-08-22 11:09 | DVHPN2 ---
Progress Note - Dictate Date Seen: August 22, 2024 Medical Necessity Reason Pt with a Central, PICC or Fol: No vital signs Vital Sign Date Time Temp Pulse Resp B/P (MAP) Pulse Ox O2 Delivery O2 Flow Rate FiO2 08/22/24 10:00 151/90 08/22/24 08:54 97.5 82 16 99 97.5 08/22/24 07:46 Room Air* 0 21 Total Intake and Output 08/21/24 08/21/24 08/22/24 15:00 23:00 07:00 Intake Total 210 ml 0 ml Balance 210 ml 0 ml medications Current Medications Medications Dose Ordered Sig/Deann Route Start Time Stop Time Status Last Admin Dose Admin Morphine Sulfate 1 mg Q6HP PRN IV 08/18/24 22:30 08/19/24 00:53 1 MG Pantoprazole Sodium 40 mg DAILY IV 08/19/24 10:00 08/22/24 10:25 40 MG Heparin Sodium (Porcine) 5,000 units Q12HR SC 08/19/24 10:00 08/21/24 21:02 5,000 UNITS Losartan Potassium 100 mg DAILY PO 08/19/24 10:00 08/21/24 08:48 100 MG Amlodipine Besylate 2.5 mg DAILY PO 08/19/24 10:00 08/21/24 08:48 2.5 MG Acetaminophen 650 mg Q6HP PRN PO 08/19/24 01:15 Docusate Sodium 100 mg BIDPRN PRN PO 08/20/24 16:00 08/20/24 16:15 100 MG Sodium Chloride 1,000 ml @ 75 mls/hr [id number] IV 08/21/24 08:45 08/21/24 21:03 75 MLS/HR objective General Appearance: alert, no distress HEENT: EOMI, PERRLA, normal external inspect of ears, no icterus, no nasal drainage Neck: no carotid bruit, no jugular venous distention (JVD), no lymphadenopathy Chest: normal thorax Respiratory: clear to auscultation, normal air movement Cardiovascular: regular rate and rhythm, no diastolic murmur, no jugular venous distention (JVD), no rub, no systolic murmur Abdominal: soft, no hepatomegaly, no mass, no splenomegaly, no tenderness Musculoskeletal: no joint tenderness, no swelling Extremities: normal pulses, no calf tenderness, no clubbing, no cyanosis, no edema Skin: no bruising, no jaundice, no rash Neurological: alert, No focal deficit laboratory and microbiology Laboratory Tests 08/22/24 05:30 Test 08/22/24 05:30 Range/Units Serum Glucose 100 74-106 mg/dL Problem List - Displaced right femur subcapital fracture Orthopedic consult, plan for ORIF on Thursday with Dr. Alexandra - Mechanical fall Monitoring -Moderate hyponatremia-improving Replace electrolytes, monitoring - Mild hypokalemia-resolved -Hyperalbuminemia Daily labs Assessment/Plan Subjective: Patient is awake and alert. Objective: Patient is scheduled for ORIF of her right hip with Dr. Alexandra. Patient had sustained a mechanical fall. Patient had moderate hyponatremia which is improving. Patient is currently on IV fluids. Plan: Continue current treatment. Patient is currently n.p.o. for scheduled procedure with orthopedic surgeon. Monitor daily labs. Continue pain medication as needed. Dietary Evaluation Review Recommendations by RD: Dietary education by RD, Protein Supplementation Comments: 1) Initiate Ensure Enlive tid. Liberalize diet to 2g Na. Encourage optimal PO intake 2) Refer to outpatient RD for weight management 3) Follow-up with orthopedic surgeon and physical therapy 4) Continue to monitor I&O, labs, and skin integrity Expected Outcomes/Goals: 1) appetite and labs to improve 2) gradual wt gain 3) f/u in 3-5 days Plan discussed with: Patient, Other LAVINIA BRENNER NP August 22, 2024 11:09
[2024-08-22] MEDS ORDERED: MORPHINE SULF PF 5 MG/10 ML VIAL ONE (11:18)
[2024-08-22] MEDS ORDERED: KETOROLAC TROMETH 30 MG/ML 1ML VIAL ONE (11:18)
[2024-08-22] MEDS ORDERED: fentaNYL CITRATE 100 MCG/2 ML VL ONE (11:22)
[2024-08-22] MEDS ORDERED: PROPOFOL 10 MG/ML 20 ML IV ONE (11:22)
[2024-08-22] MEDS ORDERED: MIDAZOLAM HCL 2MG/2ML 2ml VIAL (1mg/ml) ONE (11:23)
[2024-08-22] MEDS ORDERED: ePHEDrine SULFATE 50 MG/ML AMP ONE (12:42)
[2024-08-22] MEDS: VANCOMYCIN HCL 1000 MG VL ONE (13:00)
[2024-08-22] MEDS ORDERED: HYDROmorphone HCL 2 MG/ML VL/or syr IV PRN (13:45)
[2024-08-22] MEDS: ceFAZolin 1GM/50ML 50 ML IV SCH (14:44)
[2024-08-22] MEDS ORDERED: hydrALAZINE HCL 20 MG/ML VL IV PRN (16:45)
--- NOTE | 2024-08-22 20:04 | DVHOP2 ---
Operative Report - 2 Report Details Date: 08/22/24 Preop Diagnosis: Right femoral neck fracture poss lytic lesion Postop Diagnosis: Right femoral neck fracture poss lytic lesion Surgeon: Yandel Fields MD Eligibility Supervisor: Orestes FISHER Anesthesiologist: Lorenza QUEEN Anesthesia: Regional Implant: [employer] Polaris stem high offset 28+4/ 46 mm cup Consent: The patient was informed of the risks and benefits of the procedure. These include but are not limited to complications of anesthesia, postoperative infection, incomplete relief of symptoms, recurrence of symptoms, damage to blood vessels, nerves and tendons, deep venous thrombosis, pulmonary embolism and possible need for repeat surgery in the future. Estimated Blood Loss: 100 cc Indications for Surgery: displaced right femoral neck fracture - on imaging lytic lesion of undefined nature; planned to do kat[place]ka to not violate acetabulum in case pathology turned to be tumor Name of Procedure Performed Right hip hemiarthroplasty Procedure Details Procedure Details: INDICATION: I had a long discussion with the patient regarding the plan, the expected outcome, the risks, benefits, and alternatives of surgery. The risks include, but are not limited to, infection (which may require future surgery and removal of implants) , bleeding (which may require a transfusion), damage to nerves, arteries, veins, tendons, muscles and other adjacent structures. Also discussed the possibilities of dislocation, leg-length discrepancy, intraoperative fractures, implant loosening, heterotopic bone formation, and revision for variety of reasons, and medical complications etc. This was discussed at length and consent has been obtained. Patient understands the difference between hip hemiarthroplasty versus total hip replacement. She understands that if pathology is tumor she would need further surgeries. DESCRIPTION OF PROCEDURE: In the preoperative holding area, the consent was reviewed and the appropriate extremity was verified by the patient and marked with my initials. The patient was then transferred to the operating theatre. Appropriate anesth etia was induced. All bony prominences were well padded. A time out was performed verifying the side and site of surgery according to standard protocol. Preoperative antibiotics were given. Tranexamic acid was given. The patient was then placed in the lateral decubitus position and fixed with rigid pelvic fixation. All bony prominences were well padded and an axillary roll was placed. The affected hip area was then prepped and draped in the usual sterile fashion. We made a standard posterolateral incision sharply through the skin and carried our dissection down through subcutaneous tissue to the underlying fascia achieving hemostasis where necessary. We incised the fascia in line with our incision. We identified and protected the sciatic nerve. We took down the external rotators and hip capsule from their insertion into the greater trochanter, tagged them and retracted them posteriorly for further protection of the sciatic nerve. We then dislocated the femoral head and performed an osteotomy of the femoral neck in accordance with our pre-operative plan. Attention was then turned to the femur. We used a box osteotome followed by a canal finder to gain entry to the canal. Intramedullary contents were suctioned and care was taken to ensure they did not touch the tissues. We sequentially reamed until good cortical contact, then broached up to out final size. We tria led with the appropriate femoral neck and head and reduced the hip. The hip was taken through a full range of motion. The hip soft tissues were examined in extension and external rotation, the anterior capsule and IT band were palpated, and combined anteversion was determined to be 40 degrees. The hip was stable at maximum flexion, at 90 degrees of flexion and 45 degrees of internal rotation and the position of sleep. Leg lengths were restored as shown using the computer navigation, and the trial LTC matched preoperative and intraoperative templating. The hip was then dislocated and trial components removed. We copiously irrigated the wound and impacted the final femoral stem into position. The femoral head was impacted onto a clean and dry trunion and confirmed to be seated. The hip was reduced ensuring to tissues in the acetabular cup. We again brought it through a full functional range of motion and there was no evidence for dislocation, instability, or impingement. A dilute betadine solution (17.5mL in 500mL saline) was used to wash the joint and left to sit for 3 minutes. This was then irrigated out with copious amounts of pulse lavage. We sprinkled 1g vancomycin powder below the fascia and 1g above the fascia. We copiously irrigated the wound and soft tissues. The short external rotators and capsule were repaired to the greater trochanter through drill holes, and the quadratus was repaired. We palpated the sciatic nerve in continuity without tension. The fascia was closed with vicryl and a barbed suture. We closed over the fascia with vicryl suture and re-approximated the skin with dagoberto. A sterile dressing was placed. We returned the patient to the supine position. We verified all lower extremity compartments were soft and compressible and that we had intact distal pulses and checked our leg length jain. The patient was then transferred to the recovery room in stable condition. Specimen: Right femoral head - rule out tumor Condition Fair Disposition Still a Patient YANDEL FIELDS MD August 22, 2024 20:04
--- NOTE | 2024-08-22 20:54 | DVH ---
EXAM: XY PELVIS AP CLINICAL INDICATION: sp Right hip katiuska TECHNIQUE: XY PELVIS AP Comparison: XY PELVIS AP on DOS: 08/21/24 FINDINGS/IMPRESSION: There is no evidence of acute fracture or dislocation. Bilateral hip arthroplasty appears to be in satisfactory The alignment is anatomical. There is no radiopaque foreign body.
[2024-08-23] VITALS (8 sets, daily range): BP systolic 92–153; BP diastolic 46–84; PULSE 89–126; RESP 18–19; TEMP 97.9–99.6; O2SAT 93–98
--- NOTE | 2024-08-23 08:59 | ECG ---
[facility] Test Date: 2024-08-20 Test Time: 23:35:33 Pat Name: JENIFFER STONE Department: Respiratoy Room: [address] [place] [address] 1 Gender: F Tobacco Roller: KATY : 1955 Requested By: LADONNA STEARNS Order Number: [id number] Reading MD: Cosme Montague Measurements Intervals [place] Rate: 87 P: 69 AK: 145 QRS: 10 QRSD: 90 T: 57 QT: 391 QTc: 471 Interpretive Statements Sinus rhythm Probable left atrial enlargement Baseline wander in lead(s) V4 Electronically Signed On 08-29-2024 10:25:32 PDT by Cosme Montague Please click the below link to view image of tracing.
[2024-08-23] MEDS: CEFEPIME 1GM/ 50ML 50 ML IV SCH (10:01)
--- NOTE | 2024-08-23 10:44 | DVHPN2 ---
Progress Note - Dictate Date Seen: August 23, 2024 Medical Necessity Reason Pt with a Central, PICC or Fol: No vital signs Vital Sign Date Time Temp Pulse Resp B/P (MAP) Pulse Ox O2 Delivery O2 Flow Rate FiO2 08/23/24 10:03 128/76 08/23/24 09:04 97.9 120 18 93 97.9 08/22/24 20:00 Room Air* 0 21 Total Intake and Output 08/22/24 08/22/24 08/23/24 15:00 23:00 07:00 Intake Total 100 ml 1400 ml 2000 ml Balance 100 ml 1400 ml 2000 ml medications Current Medications Medications Dose Ordered Sig/Deann Route Start Time Stop Time Status Last Admin Dose Admin Morphine Sulfate 1 mg Q6HP PRN IV 08/18/24 22:30 08/23/24 08:19 1 MG Pantoprazole Sodium 40 mg DAILY IV 08/19/24 10:00 08/23/24 10:01 40 MG Heparin Sodium (Porcine) 5,000 units Q12HR SC 08/19/24 10:00 08/23/24 10:12 5,000 UNITS Losartan Potassium 100 mg DAILY PO 08/19/24 10:00 08/23/24 10:02 100 MG Amlodipine Besylate 2.5 mg DAILY PO 08/19/24 10:00 08/23/24 10:03 2.5 MG Acetaminophen 650 mg Q6HP PRN PO 08/19/24 01:15 Docusate Sodium 100 mg BIDPRN PRN PO 08/20/24 16:00 08/20/24 16:15 100 MG Sodium Chloride 1,000 ml @ 75 mls/hr [id number] IV 08/21/24 08:45 08/23/24 00:00 75 MLS/HR Cefepime HCl 50 ml @ 12.5 mls/hr DAILY IV 08/23/24 10:00 08/23/24 10:01 12.5 MLS/HR Hydralazine HCl 10 mg Q6HP PRN IV 08/22/24 17:15 objective General Appearance: alert, no distress HEENT: EOMI, PERRLA, normal external inspect of ears, no icterus, no nasal drainage Neck: no carotid bruit, no jugular venous distention (JVD), no lymphadenopathy Chest: normal thorax Respiratory: clear to auscultation, normal air movement Cardiovascular: regular rate and rhythm, no diastolic murmur, no jugular venous distention (JVD), no rub, no systolic murmur Abdominal: soft, no hepatomegaly, no mass, no splenomegaly, no tenderness Musculoskeletal: no joint tenderness, no swelling Extremities: normal pulses, no calf tenderness, no clubbing, no cyanosis, no edema Skin: no bruising, no jaundice, no rash Neurological: alert, No focal deficit laboratory and microbiology Laboratory Tests 08/22/24 05:30 Test 08/22/24 05:30 Range/Units Serum Glucose 100 74-106 mg/dL Problem List - Displaced right femur subcapital fracture Orthopedic consult, plan for ORIF on Thursday with Dr. Alexandra - Mechanical fall Monitoring -Moderate hyponatremia-improving Replace electrolytes, monitoring - Mild hypokalemia-resolved -Hyperalbuminemia Daily labs Assessment/Plan Subjective: Patient is awake and alert. Objective: Patient was admitted status post fall. Patient sustained a right hip fracture. Patient is status post ORIF right hip done yesterday by Doctor Ibrahima. According to RN patient is having some periods of confusion. Patient forgets when she was given a medication and she tends to repeat herself. Patient has reportedly been refusing pain medication because she states she does not like them, however, patient refused physical therapy because she was in too much pain. When I discussed this with primary RN, she said patient has been getting pain medication, however, patient is forgetting. I did discuss a plan of care with patient's at bedside. Plan: Monitor neuro status. Encephalopathy most likely related to anesthesia and pain medication. I continue to encourage patient to participate with physical therapy and continue pain medication as needed. Dietary Evaluation Review Recommendations by RD: Dietary education by RD, Protein Supplementation Comments: 1) Initiate Ensure Enlive tid. Liberalize diet to 2g Na. Encourage optimal PO intake 2) Refer to outpatient RD for weight management 3) Follow-up with orthopedic surgeon and physical therapy 4) Continue to monitor I&O, labs, and skin integrity Expected Outcomes/Goals: 1) appetite and labs to improve 2) gradual wt gain 3) f/u in 3-5 days Plan discussed with: Patient, Other LAVINIA BRENNER NP August 23, 2024 10:44
[2024-08-23] MEDS: hydrALAZINE HCL 20 MG/ML VL IV PRN (14:04)
[2024-08-23] MEDS: HYDROcodone-ACET 5/325MG TAB PO PRN (15:43)
--- NOTE | 2024-08-23 16:24 | DVHPN2 ---
Progress Note Date Seen: August 23, 2024 Medical Necessity Reason Pt with a Central, PICC or Fol: No Subjective Patient reports: No new complaints Objective vital signs Vital Sign Date Time Temp Pulse Resp B/P (MAP) Pulse Ox O2 Delivery O2 Flow Rate FiO2 08/23/24 14:06 112 15 153/73 08/23/24 12:34 98.4 96 98.4 08/23/24 07:30 Room Air* 0 21 Total Intake and Output 08/22/24 08/22/24 08/23/24 15:00 23:00 07:00 Intake Total 100 ml 1400 ml 2000 ml Balance 100 ml 1400 ml 2000 ml medications Current Medications Medications Dose Ordered Sig/Deann Route Start Time Stop Time Status Last Admin Dose Admin Morphine Sulfate 1 mg Q6HP PRN IV 08/18/24 22:30 08/23/24 14:06 1 MG Pantoprazole Sodium 40 mg DAILY IV 08/19/24 10:00 08/23/24 10:01 40 MG Heparin Sodium (Porcine) 5,000 units Q12HR SC 08/19/24 10:00 08/23/24 10:12 5,000 UNITS Losartan Potassium 100 mg DAILY PO 08/19/24 10:00 08/23/24 10:02 100 MG Amlodipine Besylate 2.5 mg DAILY PO 08/19/24 10:00 08/23/24 10:03 2.5 MG Acetaminophen 650 mg Q6HP PRN PO 08/19/24 01:15 Docusate Sodium 100 mg BIDPRN PRN PO 08/20/24 16:00 08/20/24 16:15 100 MG Sodium Chloride 1,000 ml @ 75 mls/hr [id number] IV 08/21/24 08:45 08/23/24 14:11 75 MLS/HR Cefepime HCl 50 ml @ 12.5 mls/hr DAILY IV 08/23/24 10:00 08/23/24 10:01 12.5 MLS/HR Hydralazine HCl 10 mg Q6HP PRN IV 08/22/24 17:15 08/23/24 14:04 10 MG Acetaminophen/ Hydrocodone Bitart 1 tab Q4HPRN PRN PO 08/23/24 13:30 08/23/24 15:43 1 TAB laboratory and microbiology Laboratory Tests 08/22/24 05:30 Test 08/22/24 05:30 Range/Units Serum Glucose 100 74-106 mg/dL Problem List/Assessment/Plan Problem List/Assessment/Plan 69 year old female who is s/p right hip [place] POD 1 1. WBAT RLE 2. pain control 3. Physical therapy 4. clear for discharge from orthopedic standpoint 5. follow up in 2 weeks at [facility] ortho clinic Plan discussed with: Patient Dietary Evaluation Review Recommendations by RD: Dietary education by RD, Protein Supplementation Comments: 1) Initiate Ensure Enlive tid. Liberalize diet to 2g Na. Encourage optimal PO intake 2) Refer to outpatient RD for weight management 3) Follow-up with orthopedic surgeon and physical therapy 4) Continue to monitor I&O, labs, and skin integrity Expected Outcomes/Goals: 1) appetite and labs to improve 2) gradual wt gain 3) f/u in 3-5 days Date of Service: August 23, 2024 Billing Provider: STACY FIELDS MD Common Visit Codes: NOT BILLABLE SAMMY ASHLEY NP August 23, 2024 16:24
[2024-08-24] VITALS (8 sets, daily range): BP systolic 83–128; BP diastolic 60–87; PULSE 92–114; RESP 16–19; TEMP 97.1–98.9; O2SAT 94–100
--- NOTE | 2024-08-24 13:59 | DVHPN2 ---
Progress Note - Dictate Date Seen: August 24, 2024 Medical Necessity Reason Pt with a Central, PICC or Fol: No vital signs Vital Sign Date Time Temp Pulse Resp B/P (MAP) Pulse Ox O2 Delivery O2 Flow Rate FiO2 08/24/24 13:00 97.1 102 19 95/74 (81) 98 97.1 08/24/24 07:50 Room Air* 0 21 Total Intake and Output 08/23/24 08/23/24 08/24/24 15:00 23:00 07:00 Intake Total 50 ml 580 ml 1300 ml Balance 50 ml 580 ml 1300 ml medications Current Medications Medications Dose Ordered Sig/Deann Route Start Time Stop Time Status Last Admin Dose Admin Morphine Sulfate 1 mg Q6HP PRN IV 08/18/24 22:30 08/23/24 14:06 1 MG Pantoprazole Sodium 40 mg DAILY IV 08/19/24 10:00 08/24/24 09:26 40 MG Heparin Sodium (Porcine) 5,000 units Q12HR SC 08/19/24 10:00 08/24/24 09:28 5,000 UNITS Losartan Potassium 100 mg DAILY PO 08/19/24 10:00 08/24/24 09:25 100 MG Amlodipine Besylate 2.5 mg DAILY PO 08/19/24 10:00 08/24/24 09:25 2.5 MG Acetaminophen 650 mg Q6HP PRN PO 08/19/24 01:15 Docusate Sodium 100 mg BIDPRN PRN PO 08/20/24 16:00 08/20/24 16:15 100 MG Sodium Chloride 1,000 ml @ 75 mls/hr [id number] IV 08/21/24 08:45 08/23/24 14:11 75 MLS/HR Cefepime HCl 50 ml @ 12.5 mls/hr DAILY IV 08/23/24 10:00 08/24/24 09:26 12.5 MLS/HR Hydralazine HCl 10 mg Q6HP PRN IV 08/22/24 17:15 08/23/24 14:04 10 MG Acetaminophen/ Hydrocodone Bitart 1 tab Q4HPRN PRN PO 08/23/24 13:30 08/24/24 09:22 1 TAB objective General Appearance: alert, no distress HEENT: EOMI, PERRLA, normal external inspect of ears, no icterus, no nasal drainage Neck: no carotid bruit, no jugular venous distention (JVD), no lymphadenopathy Chest: normal thorax Respiratory: clear to auscultation, normal air movement Cardiovascular: regular rate and rhythm, no diastolic murmur, no jugular venous distention (JVD), no rub, no systolic murmur Abdominal: soft, no hepatomegaly, no mass, no splenomegaly, no tenderness Musculoskeletal: no joint tenderness, no swelling Extremities: normal pulses, no calf tenderness, no clubbing, no cyanosis, no edema Skin: no bruising, no jaundice, no rash Neurological: alert, No focal deficit laboratory and microbiology Laboratory Tests 08/22/24 05:30 Test 08/22/24 05:30 Range/Units Serum Glucose 100 74-106 mg/dL Problem List - Displaced right femur subcapital fracture Orthopedic consult, plan for ORIF on Thursday with Dr. Alexandra - Mechanical fall Monitoring -Moderate hyponatremia-improving Replace electrolytes, monitoring - Mild hypokalemia-resolved -Hyperalbuminemia Daily labs Assessment/Plan Subjective: Patient is awake and alert. Objective: Mentation is at her baseline. Yesterday, patient had some confusion, likely related to anesthesia and pain medication. Patient reports ambulating with physical therapy and feels less pain today. I also spoke with her , Maulik, and updated him on the plan of care. Plan: Continue physical therapy for 12 days. Discharge planning for home with home health and PT. Dietary Evaluation Review Recommendations by RD: Dietary education by RD, Protein Supplementation Comments: 1) Initiate Ensure Enlive tid. Liberalize diet to 2g Na. Encourage optimal PO intake 2) Refer to outpatient RD for weight management 3) Follow-up with orthopedic surgeon and physical therapy 4) Continue to monitor I&O, labs, and skin integrity Expected Outcomes/Goals: 1) appetite and labs to improve 2) gradual wt gain 3) f/u in 3-5 days Plan discussed with: Patient, Other LAVINIA BRENNER NP August 24, 2024 13:59
[2024-08-24 14:25] LABS: Basophils # (auto) 0 10 ^3/uL (0-0.2); Basophils % (auto) 0.3 % (0.0-2.0); Eosinophils # (auto) 0.1 10 ^3/uL (0-0.8); Eosinophils % (auto) 0.5 % (0.0-7.0); Hematocrit 34.2 % (36.0-46.0); Hemoglobin 11.8 g/dL (12.2-16.2); Lymphocytes # (auto) 1.6 10 ^3/uL (0.4-5.4); Lymphocytes % (auto) 12.3 % (10.0-50.0); Mean Corpuscular Hemoglobin 31.2 pg (28.0-32.0); Mean Corpuscular Hgb Conc. 34.5 g/dL (32.0-36.0); Mean Corpuscular Volume 90.3 fL (80.0-100.0); Monocytes # (auto) 1.4 10 ^3/uL (0-1.3); Monocytes % (auto) 11.2 % (0.0-12.0); Neutrophils # (auto) 9.6 10 ^3/uL (1.6-8.6); Neutrophils % (auto) 75.7 % (37.0-80.0); Platelet Count (auto) 239 10^3/uL (140-450); Red Blood Cells 3.79 10^6/uL (4.0-5.20); Red Cell Distribution Width 12.8 % (11.8-14.3); White Blood Cell 12.7 10^3/uL (4.4-10.8)
[2024-08-24 14:48] LABS: Anion Gap 8 (5-15); Carbon Dioxide 23 mmol/L (20-31)
[2024-08-24 14:50] LABS: Calcium 8.2 mg/dL (8.7-10.4); Chloride 96 mmol/L (98-107); Potassium 3.3 mmol/L (3.5-5.1); Sodium 127 mmol/L (136-145)
[2024-08-24 14:54] LABS: BUN/Creatinine Ratio 16.9 (10.0-20.0); Blood Urea Nitrogen 13 mg/dL (9-23)
[2024-08-24 14:55] LABS: Glucose 136 mg/dL (74-106)
[2024-08-24] MEDS: ALBUMIN 25% 100 ML IV ONE (23:10)
[2024-08-25] VITALS (9 sets, daily range): BP systolic 102–149; BP diastolic 67–95; PULSE 78–117; RESP 15–18; TEMP 97.3–98; O2SAT 97–98
--- NOTE | 2024-08-25 12:37 | DVHPN2 ---
Progress Note - Dictate Date Seen: August 25, 2024 Medical Necessity Reason Pt with a Central, PICC or Fol: No vital signs Vital Sign Date Time Temp Pulse Resp B/P (MAP) Pulse Ox O2 Delivery O2 Flow Rate FiO2 08/25/24 10:15 145/95 08/25/24 09:00 97.3 99 16 97 97.3 08/24/24 19:57 Room Air* 0 21 Total Intake and Output 08/24/24 08/24/24 08/25/24 15:00 23:00 07:00 Intake Total 1410 ml 1650 ml Balance 1410 ml 1650 ml medications Current Medications Medications Dose Ordered Sig/Deann Route Start Time Stop Time Status Last Admin Dose Admin Morphine Sulfate 1 mg Q6HP PRN IV 08/18/24 22:30 08/23/24 14:06 1 MG Pantoprazole Sodium 40 mg DAILY IV 08/19/24 10:00 08/25/24 10:12 40 MG Heparin Sodium (Porcine) 5,000 units Q12HR SC 08/19/24 10:00 08/25/24 10:14 5,000 UNITS Losartan Potassium 100 mg DAILY PO 08/19/24 10:00 08/25/24 10:15 100 MG Amlodipine Besylate 2.5 mg DAILY PO 08/19/24 10:00 08/25/24 10:14 2.5 MG Acetaminophen 650 mg Q6HP PRN PO 08/19/24 01:15 Docusate Sodium 100 mg BIDPRN PRN PO 08/20/24 16:00 08/20/24 16:15 100 MG Sodium Chloride 1,000 ml @ 75 mls/hr [id number] IV 08/21/24 08:45 08/25/24 05:55 75 MLS/HR Cefepime HCl 50 ml @ 12.5 mls/hr DAILY IV 08/23/24 10:00 08/25/24 10:18 12.5 MLS/HR Hydralazine HCl 10 mg Q6HP PRN IV 08/22/24 17:15 08/23/24 14:04 10 MG Acetaminophen/ Hydrocodone Bitart 1 tab Q4HPRN PRN PO 08/23/24 13:30 08/25/24 10:13 1 TAB objective General Appearance: alert, no distress HEENT: EOMI, PERRLA, normal external inspect of ears, no icterus, no nasal drainage Neck: no carotid bruit, no jugular venous distention (JVD), no lymphadenopathy Chest: normal thorax Respiratory: clear to auscultation, normal air movement Cardiovascular: regular rate and rhythm, no diastolic murmur, no jugular venous distention (JVD), no rub, no systolic murmur Abdominal: soft, no hepatomegaly, no mass, no splenomegaly, no tenderness Musculoskeletal: no joint tenderness, no swelling Extremities: normal pulses, no calf tenderness, no clubbing, no cyanosis, no edema Skin: no bruising, no jaundice, no rash Neurological: alert, No focal deficit laboratory and microbiology Laboratory Tests 08/24/24 14:17 Test 08/24/24 14:17 Range/Units Serum Glucose 136 H 74-106 mg/dL Problem List - Displaced right femur subcapital fracture Orthopedic consult, plan for ORIF on Thursday with Dr. Alexandra - Mechanical fall Monitoring -Moderate hyponatremia-improving Replace electrolytes, monitoring - Mild hypokalemia-resolved -Hyperalbuminemia Daily labs Assessment/Plan Subjective: Patient is awake and alert. Objective: Patient has been working with physical therapy. Patient was admitted status post fall. Patient sustained a right femur fracture. Patient was seen by Doctor Ibrahima. Patient status post ORIF. Patient has been cleared for physical therapy with weight bearing as tolerated. Potassium was 3.3. Electrolytes were replaced. Plan: Repeat labs ordered for AM. A health social work professor was consulted to arrange for home health home safety discharge follow up and physical therapy. Dietary Evaluation Review Recommendations by RD: Dietary education by RD, Protein Supplementation Comments: 1) Initiate Ensure Enlive tid. Liberalize diet to 2g Na. Encourage optimal PO intake 2) Refer to outpatient RD for weight management 3) Follow-up with orthopedic surgeon and physical therapy 4) Continue to monitor I&O, labs, and skin integrity Expected Outcomes/Goals: 1) appetite and labs to improve 2) gradual wt gain 3) f/u in 3-5 days Plan discussed with: Patient, Other LAVINIA BRENNER NP August 25, 2024 12:37
[2024-08-25] MEDS: ceFAZolin 1GM/50ML 100 ML IV ONE (14:37)
[2024-08-25] MEDS: IOHEXOL 350 MG/ML 100ML IJ ONE (14:37)
[2024-08-25] MEDS: TRANEXAMIC ACID 20 ML ONE (14:37)
[2024-08-25] MEDS: BUPIVACAINE 0.25% INJ 50ML VIAL ONE (14:37)
[2024-08-25] MEDS: ROPIVACAINE 0.5% (5MG/ML) 20ML AMPULE IJ ONE (14:38)
[2024-08-25] MEDS: ONDANSETRON HCL 4 MG/2 ML VIAL IV ONE (14:39)
[2024-08-25] MEDS: POTASSIUM CHL 20 Meq TABLET PO ONE (14:46)
[2024-08-26 01:00] VITALS: BP 138/89; PULSE 88; RESP 18; TEMP 98.1; O2SAT 97
[2024-08-26 05:00] VITALS: BP 133/80; PULSE 99; RESP 18; TEMP 98.5; O2SAT 97
[2024-08-26 06:20] LABS: Anion Gap 10 (5-15); Carbon Dioxide 23 mmol/L (20-31); Chloride 99 mmol/L (98-107); Potassium 3.6 mmol/L (3.5-5.1)
[2024-08-26 06:22] LABS: Sodium 132 mmol/L (136-145)
[2024-08-26 06:26] LABS: BUN/Creatinine Ratio 17.5 (10.0-20.0); Blood Urea Nitrogen 10 mg/dL (9-23); Glucose 101 mg/dL (74-106)
[2024-08-26 07:19] LABS: Basophils # (auto) 0 10 ^3/uL (0-0.2); Basophils % (auto) 0.3 % (0.0-2.0); Eosinophils # (auto) 0.1 10 ^3/uL (0-0.8); Eosinophils % (auto) 1.1 % (0.0-7.0); Hematocrit 29.2 % (36.0-46.0); Hemoglobin 10.4 g/dL (12.2-16.2); Lymphocytes # (auto) 1.5 10 ^3/uL (0.4-5.4); Lymphocytes % (auto) 24.2 % (10.0-50.0); Mean Corpuscular Hemoglobin 31.7 pg (28.0-32.0); Mean Corpuscular Hgb Conc. 35.6 g/dL (32.0-36.0); Mean Corpuscular Volume 88.9 fL (80.0-100.0); Monocytes # (auto) 0.6 10 ^3/uL (0-1.3); Monocytes % (auto) 10.8 % (0.0-12.0); Neutrophils # (auto) 3.8 10 ^3/uL (1.6-8.6); Neutrophils % (auto) 63.6 % (37.0-80.0); Platelet Count (auto) 264 10^3/uL (140-450); Red Blood Cells 3.29 10^6/uL (4.0-5.20); Red Cell Distribution Width 12.7 % (11.8-14.3)
[2024-08-26 08:00] VITALS: PULSE 113; RESP 20; O2SAT 98
[2024-08-26] MEDS ORDERED: ASPI-543 PO (11:12)
--- NOTE | 2024-08-26 11:12 | DVHDS2 ---
Discharge Summary Date of Admission August 18, 2024 at 22:21 Date of Discharge: August 26, 2024 Admitting Diagnosis Right femur fracture Labs/Diagnostic Data: Laboratory Results Test 08/26/24 05:50 08/22/24 05:30 08/21/24 06:06 08/19/24 05:25 White Blood Count 6.0 10^3/uL (4.4-10.8) Red Blood Count 3.29 10^6/uL (4.0-5.20) Hemoglobin 10.4 g/dL (12.2-16.2) Hematocrit 29.2 % (36.0-46.0) Mean Corpuscular Volume 88.9 fL (80.0-100.0) Mean Corpuscular Hemoglobin 31.7 pg (28.0-32.0) Mean Corpuscular Hemoglobin Concent 35.6 g/dL (32.0-36.0) Red Cell Distribution Width 12.7 % (11.8-14.3) Platelet Count 264 10^3/uL (140-450) Mean Platelet Volume 7.4 fL (6.9-10.8) Neutrophils (%) (Auto) 63.6 % (37.0-80.0) Lymphocytes (%) (Auto) 24.2 % (10.0-50.0) Monocytes (%) (Auto) 10.8 % (0.0-12.0) Eosinophils (%) (Auto) 1.1 % (0.0-7.0) Basophils (%) (Auto) 0.3 % (0.0-2.0) Neutrophils # (Auto) 3.8 10 ^3/uL (1.6-8.6) Lymphocytes # (Auto) 1.5 10 ^3/uL (0.4-5.4) Monocytes # (Auto) 0.6 10 ^3/uL (0-1.3) Eosinophils # (Auto) 0.1 10 ^3/uL (0-0.8) Basophils # (Auto) 0 10 ^3/uL (0-0.2) Nucleated Red Blood Cells 0.0 % Sodium Level 132 mmol/L (136-145) Potassium Level 3.6 mmol/L (3.5-5.1) Chloride Level 99 mmol/L (98-107) Carbon Dioxide Level 23 mmol/L (20-31) Anion Gap 10 (5-15) Blood Urea Nitrogen 10 mg/dL (9-23) Creatinine 0.57 mg/dL (0.550-1.02) Glomerular Filtration Rate Calc 100 mL/min (>90) BUN/Creatinine Ratio 17.5 (10.0-20.0) Serum Glucose 101 mg/dL (74-106) Calcium Level 9.0 mg/dL (8.7-10.4) Total Bilirubin 0.7 mg/dL (0.2-1.0) Aspartate Amino Transferase (AST) 18 U/L (13-40) Alanine Aminotransferase (ALT) < 9 U/L (7-40) Alkaline Phosphatase 81 U/L (46-116) Total Protein 7.8 g/dL (5.7-8.2) Albumin 4.6 g/dL (3.2-4.8) Prothrombin Time 10.6 sec (9.3-11.8) Prothrombin Time INR 1.00 (0.9-1.15) Activated Partial Thromboplast Time 33.6 SEC (24.5-34.5) Magnesium Level 1.8 mg/dL (1.6-2.6) Test 08/19/24 01:05 08/18/24 23:20 Urine Color Light-yellow (Yellow) Urine Clarity Clear (Clear) Urine pH 6.5 (5.0-9.0) Urine Specific [place] 1.015 (1.001-1.035) Urine Protein Negative (Negative) Urine Ketones 1+ (Negative) Urine Blood 2+ /uL (Negative) Urine Nitrite Negative (Negative) Urine Bilirubin Negative (Negative) Urine Urobilinogen Normal mg/dL (Negative) Urine Leukocyte Esterase Negative /uL (Negative) Urine RBC 11 /hpf (0 - 4) Urine Microscopic WBC 2 /HPF (0-5) Urine Squamous Epithelial Cells Few /hpf (<5) Urine Bacteria None seen /hpf (None Seen) Urine Mucus Few (None Seen) Urine Glucose Normal mg/dL (Normal) Urine Opiates Screen Neg (NEGATIVE) Urine Fentanyl Screen Neg (NEGATIVE) Urine Barbiturates Screen Neg (NEGATIVE) Urine Phencyclidine Screen Neg (NEGATIVE) Urine Amphetamines Screen Neg (NEGATIVE) Urine Benzodiazepines Screen Neg (NEGATIVE) Urine Cocaine Screen Neg (NEGATIVE) Urine Cannabinoids Screen Neg (NEGATIVE) Hemoglobin A1c 5.1 % A1C (<5.7) Thyroid Stimulating Hormone (TSH) 1.52 uIU/mL (0.55-4.78) Plasma/Serum Blood Alcohol < 3.0 mg/dL (<10) Other Laboratory Tests 08/26/24 05:50 Brief Hx & Hospital Course: Patient was admitted S/P fall and sustained right femur fracture. Patient underwent ORIF by Dr. Alexandra. Patient was cleared by Orthopedic for discharge. Patient was cleared by physical therapy to continue with weight-bearing as tolerated. Patient was arranged for physical therapy through home health patient did refuse SNF. And was discharged home with home health PT. Patient is to continue aspirin 81 mg b.i.d. for DVT prophylaxis. Patient is to follow up with PCP within one week of discharge. Patient was in agreement with discharge plan, verbalized understanding Condition at Discharge: Fair Final Diagnosis/Problems List - Displaced right femur subcapital fracture - Mechanical fall -Moderate hyponatremia-improving - Mild hypokalemia-resolved -Hyperalbuminemia Discharge Disposition: Still a Patient Discharge Instruct/Medications Diet: Cardiac 2g Na,low cholest Activity: No Restrictions, As Tolerated Follow Up/Referral: PCP within 1 week Discharge Statement: "Patient was advised to return to the ER or call 911 if any headaches, dizziness, shortness of breath, chest pain, abdominal pain, bleeding, fevers, or worsening of medical condition. Patient was counseled about treatment plan, medications, possible side effects, patientverbalized understanding. All questions were answered to the best of my ability. This discharge took greater then 30 minutes in planning, reviewing documentation, counseling the patient, and discussing with other team members." ASSESSMENT ASSESSMENT Assessment - Displaced right femur subcapital fracture - Mechanical fall -Moderate hyponatremia-improving - Mild hypokalemia-resolved -Hyperalbuminemia DULCE MARIA SAMPSON August 26, 2024 11:12
[2024-08-26 11:28] VITALS: BP 141/80; PULSE 100; RESP 18; TEMP 98.6; O2SAT 98
[2024-08-26 13:08] VITALS: BP 156/87; PULSE 117; RESP 20; TEMP 98; O2SAT 96
== END 2024-08-26 15:42 | disposition home health service (06) | DRG 522 ==
LOC: ER 15:13 → OVERFLOW 22:21 → TELE-EAST 08-19 02:06
PROVIDERS: ADMIT Nurse Practitioner Family; ATTEND Nurse Practitioner Family
PROC: 0SRR0JZ Replacement of Right Hip Joint, Femoral Surface with Synthetic Substitute, Open Approach (ICD-10-PCS; principal; 2024-08-22 12:07)
DX: S72.011A Unspecified intracapsular fracture of right femur, initial encounter for closed fracture (principal); E87.1 Hypo-osmolality and hyponatremia; E87.6 Hypokalemia; I10 Essential (primary) hypertension; Z79.899 Other long term (current) drug therapy; W01.0XXA Fall on same level from slipping, tripping and stumbling without subsequent striking against object, initial encounter; Y93.89 Activity, other specified; Y92.89 Other specified places as the place of occurrence of the external cause; Y99.8 Other external cause status
CPT/HCPCS: 36415; 71045; 71260; 72170; 73700; 73721; 74177; 80048; 80053; 80307; 80320; 81001; 83036; 83735; 84443; 85025; 85610; 85730; 86850; 86900; 86901; 93005; 93306; 96374; 97110; 97116; 97163; G0378; J1885; J2250; J2470; J2704; J3490; P9047